=== PATIENT | female | born 1975 | race Hispanic/Latino ===

== ENCOUNTER 2016-10-06 05:28 | Emergency (ER) | payer SELFPAY ==
[2016-10-06] MEDS ORDERED: DUONEB *Not for PRN Use IH ONE ×2 (05:36→05:46)
[2016-10-06] MEDS ORDERED: PROVENTIL IH ONE ×2 (05:48)
[2016-10-06] MEDS ORDERED: MAGNESIUM SULFATE 2GM/50ML 2 GM/50 ML BAG IV ONE ×2 (06:00)
[2016-10-06] MEDS ORDERED: ZOFRAN ONE (06:06)
[2016-10-06] MEDS ORDERED: ZOFRAN IV ONE ×2 (06:13→06:44)
--- NOTE | 2016-10-06 06:21 | Emergency Department Report ---
ED Shortness of Breath HPI - General Chief Complaint: Adult Asthma Stated Complaint: PRUDENCIO Time Seen by Provider: 10/06/16 05:59 Source: patient Mode of arrival: Ambulatory Limitations: No Limitations - History of Present Illness Initial Comments: 30 year old female with a past medical history of asthma and 15 previous intubations presents to the hospital complaints of shortness of breath and asthma attack. Symptoms started abruptly at 11 PM. Use her inhaler 4 times prior to arrival without improvement. Patient arrived by POV and therefore no additional meds received in route. Positive nonproductive cough noted. No complaints of fever. Positive chest tightness reported. - Related Data Home Medications Medication Instructions Recorded Confirmed Last Taken Albuterol Sulfate [Proair 90 mcg IH Q6H PRN 10/06/16 10/06/16 10/06/16 Respiclick] Previous Rx's Medication Instructions Recorded Last Taken Type ALBUTEROL Inhaler [ProAir HFA 2 puff IH QID PRN #1 inhalation 10/06/16 Unknown Rx Inhaler] Prednisone [predniSONE 10 mg 10 mg PO .TAPER #1 tab.ds.pk 10/06/16 Unknown Rx (6-Day Pack, 21 Tabs)] Promethazine [Phenergan TAB] 25 mg PO Q6HR PRN #20 tab 10/06/16 Unknown Rx Allergies Allergy/AdvReac Type Severity Reaction Status Date / Time No Known Allergies Allergy Unverified 07/29/15 10:25 ED Review of Systems ROS: Stated complaint: PRUDENCIO Other details as noted in HPI Comment: All other systems reviewed and negative Other: Constitutional: No fevers chills Eyes: No eye pain visual changes ENT: No ear pain or throat pain Neck: Denies pain Respiratory: As per HPI Cardiovascular: Denies, palpitations, syncope GI: Denies abdominal pain. Nausea vomiting started after arrival : Denies dysuria Musculoskeletal: Denies back pain Skin: Denies rash, lesions, erythema Neurologic: Denies headache, numbness, weakness Psychiatric: Denies suicidal ideation, hallucinations ED Past Medical Hx - Past Medical History Previous Medical History?: Yes Hx Asthma: Yes - Surgical History Past Surgical History?: Yes Hx Cholecystectomy: Yes (1994) Additional Surgical History: tubal ligation - Social History Smoking Status: Never Smoker Substance Use Type: None - Medications Home Medications: Home Medications Medication Instructions Recorded Confirmed Last Taken Type ALBUTEROL Inhaler [ProAir HFA 2 puff IH QID PRN #1 inhalation 10/06/16 Unknown Rx Inhaler] Albuterol Sulfate [Proair 90 mcg IH Q6H PRN 10/06/16 10/06/16 10/06/16 History Respiclick] Prednisone [predniSONE 10 mg 10 mg PO .TAPER #1 tab.ds.pk 10/06/16 Unknown Rx (6-Day Pack, 21 Tabs)] Promethazine [Phenergan TAB] 25 mg PO Q6HR PRN #20 tab 10/06/16 Unknown Rx ED Physical Exam - General Limitations: No Limitations - Other Other exam information: General: No limitations, patient is alert in no acute distress Head exam: Atraumatic, normocephalic Eyes exam: Normal appearance, pupils equal reactive to light, extraocular movements intact ENT: Moist mucous membrane, normal oropharynx Neck exam: Normal inspection, full range of motion, no meningismus nontender Respiratory exam: Tachypnea, fair air movement, mild expiratory wheeze. ( Patient had a dual neb and currently receiving albuterol 5 mg) Cardiovascular: Tachycardia regular rhythm Abdomen: Soft, nondistended, and nontender, with normal bowel sounds, no rebound, or guarding Extremity: Full range of motion normal inspection no deformity Back: Normal Inspection, full range of motion, no tenderness Neurologic: Alert, oriented x3, cranial nerves intact, no motor or sensory deficit Psychiatric: normal affect, normal mood Skin: Warm, dry, intact ED Course Vital Signs 10/06/16 10/06/16 10/06/16 05:33 05:40 05:50 Temperature 97.6 F Pulse Rate 88 120 H Pulse Rate [ Bilateral] Respiratory 30 H 26 H Rate Respiratory Rate [Bilateral ] Blood Pressure 152/104 Blood Pressure [Right] O2 Sat by Pulse 100 100 99 Oximetry 10/06/16 10/06/16 10/06/16 05:52 06:00 06:10 Temperature Pulse Rate 131 H Pulse Rate [ 99 H Bilateral] Respiratory 17 26 H Rate Respiratory 20 Rate [Bilateral ] Blood Pressure Blood Pressure [Right] O2 Sat by Pulse 99 Oximetry 10/06/16 10/06/16 10/06/16 06:30 06:54 07:00 Temperature Pulse Rate 108 H 107 H 98 H Pulse Rate [ Bilateral] Respiratory 24 22 13 Rate Respiratory Rate [Bilateral ] Blood Pressure 118/74 Blood Pressure 141/94 [Right] O2 Sat by Pulse 98 98 96 Oximetry 10/06/16 10/06/16 10/06/16 07:30 07:47 08:00 Temperature 98.0 F Pulse Rate 104 H 85 Pulse Rate [ Bilateral] Respiratory 16 14 Rate Respiratory Rate [Bilateral ] Blood Pressure 131/89 115/68 Blood Pressure [Right] O2 Sat by Pulse 97 100 Oximetry 10/06/16 08:30 Temperature Pulse Rate 87 Pulse Rate [ Bilateral] Respiratory 12 Rate Respiratory Rate [Bilateral ] Blood Pressure 115/68 Blood Pressure [Right] O2 Sat by Pulse 98 Oximetry - Reevaluation(s) Reevaluation #1: 10/06/16 09:43 Patient's nausea vomiting do not improve with Zofran 8 mg but did improve with Benadryl and Reglan. After nebs, slightly measure, and magnesium patient's clear, no hypoxia. No tachypnea or tachycardia. And patient continues to deny abdominal pain and is nontender on exam 10/06/16 09:50 Patient observed for over an hour after her last treatment and continues to feel relieved without any recurrent wheezing or shortness of breath. ED Medical Decision Making - Lab Data Result diagrams: 10/06/16 07:31 10/06/16 07:31 Lab Results 10/06/16 10/06/16 10/06/16 Range/Units 07:31 07:31 07:31 WBC 8.3 (4.5-11.0) K/mm3 RBC 4.79 (3.65-5.03) M/mm3 Hgb 15.8 H (10.1-14.3) gm/dl Hct 45.6 H (30.3-42.9) % MCV 95 (79-97) fl MCH 33 H (28-32) pg MCHC 35 H (30-34) % RDW 13.1 L (13.2-15.2) % Plt Count 259 (140-440) K/mm3 Lymph % (Auto) 14.5 (13.4-35.0) % [facility] % (Auto) 4.2 (0.0-7.3) % Eos % (Auto) 0.9 (0.0-4.3) % Baso % (Auto) 0.5 (0.0-1.8) % Lymph # 1.2 (1.2-5.4) K/mm3 [facility] # 0.4 (0.0-0.8) K/mm3 Eos # 0.1 (0.0-0.4) K/mm3 Baso # 0.0 (0.0-0.1) K/mm3 Seg Neutrophils % 79.9 H (40.0-70.0) % Seg Neutrophils # 6.7 (1.8-7.7) K/mm3 POC ABG pH (7.35-7.45) POC ABG pCO2 (35-45) POC ABG pO2 (80-105) POC ABG HCO3 POC ABG Total CO2 POC ABG O2 Sat POC ABG Base Excess FiO2 % Sodium 135 L (137-145) mmol/L Potassium 3.4 L (3.6-5.0) mmol/L Chloride 100.0 (98-107) mmol/L Carbon Dioxide 15 L (22-30) mmol/L Anion Gap 23 mmol/L BUN 7 (7-17) mg/dL Creatinine 0.5 L (0.7-1.2) mg/dL Estimated GFR > 60 ml/min BUN/Creatinine Ratio 14.00 % Glucose 180 H (65-100) mg/dL Calcium 8.4 (8.4-10.2) mg/dL Total Bilirubin 0.90 (0.1-1.2) mg/dL AST 277 H (5-40) units/L ALT 131 H (7-56) units/L Alkaline Phosphatase 149 H (35-129) units/L Total Protein 6.8 (6.3-8.2) g/dL Albumin 3.7 L (3.9-5) g/dL Albumin/Globulin Ratio 1.2 % Lipase 173 H (13-60) units/L HCG, Qual Negative (Negative) 10/06/16 Range/Units 08:42 WBC (4.5-11.0) K/mm3 RBC (3.65-5.03) M/mm3 Hgb (10.1-14.3) gm/dl Hct (30.3-42.9) % MCV (79-97) fl MCH (28-32) pg MCHC (30-34) % RDW (13.2-15.2) % Plt Count (140-440) K/mm3 Lymph % (Auto) (13.4-35.0) % [facility] % (Auto) (0.0-7.3) % Eos % (Auto) (0.0-4.3) % Baso % (Auto) (0.0-1.8) % Lymph # (1.2-5.4) K/mm3 [facility] # (0.0-0.8) K/mm3 Eos # (0.0-0.4) K/mm3 Baso # (0.0-0.1) K/mm3 Seg Neutrophils % (40.0-70.0) % Seg Neutrophils # (1.8-7.7) K/mm3 POC ABG pH 7.402 (7.35-7.45) POC ABG pCO2 30.9 L (35-45) POC ABG pO2 106 H (80-105) POC ABG HCO3 19.2 POC ABG Total CO2 20 POC ABG O2 Sat 98 POC ABG Base Excess -6 FiO2 21 % Sodium (137-145) mmol/L Potassium (3.6-5.0) mmol/L Chloride (98-107) mmol/L Carbon Dioxide (22-30) mmol/L Anion Gap mmol/L BUN (7-17) mg/dL Creatinine (0.7-1.2) mg/dL Estimated GFR ml/min BUN/Creatinine Ratio % Glucose (65-100) mg/dL Calcium (8.4-10.2) mg/dL Total Bilirubin (0.1-1.2) mg/dL AST (5-40) units/L ALT (7-56) units/L Alkaline Phosphatase (35-129) units/L Total Protein (6.3-8.2) g/dL Albumin (3.9-5) g/dL Albumin/Globulin Ratio % Lipase (13-60) units/L HCG, Qual (Negative) - Radiology Data Radiology results: report reviewed Abdominal ultrasound: Cholecystectomy. Dilated common bile duct and possible fatty liver. - Medical Decision Making Patient's asthma exacerbation has improved. Chest x-ray not performed since patient denies infectious symptoms. Patient will be discharged on medications for acute asthma exacerbation. Elevated LFTs noted. She denies daily alcohol use. Previous cholecystectomy. Outpatient PMD and/or GI follow-up evaluation will be encouraged - Differential Diagnosis asthma exacerbation, bronchitis Critical Care Time: No Critical care attestation.: If time is entered above; I have spent that time in minutes in the direct care of this critically ill patient, excluding procedure time. ED Disposition Clinical Impression: Acute asthma exacerbation, Elevated LFTs, Vomiting Disposition: - TO HOME OR SELFCARE Is pt being admited?: No Does the pt Need Aspirin: No Condition: Stable Instructions: Asthma (ED) Additional Instructions: Take the medication as prescribed. Use the good Rx card provided to make your medications more affordable. The Prescription is a typically cheapest at [facility]. Please return if symptoms worsen. Follow-up with a primary care doctor/clinic or GI specialist for further evaluation of your elevated liver Prescriptions: ALBUTEROL Inhaler [ProAir HFA Inhaler] 2 puff IH QID PRN #1 inhalation PRN Reason: Shortness Of Breath Prednisone [predniSONE 10 mg (6-Day Pack, 21 Tabs)] 10 mg PO .TAPER #1 tab.ds.pk Promethazine [Phenergan TAB] 25 mg PO Q6HR PRN #20 tab PRN Reason: Nausea Referrals: [facility] [Provider Group] - 2-3 Days UZIEL HAN MD [Staff Physician] - 2-3 Days (GI doctor) DIMITRIOS URIOSTEGUI MD [Staff Physician] - 2-3 Days (Primary care ) Time of Disposition: 09:51
[2016-10-06] MEDS ORDERED: BENADRYL IV ONE (07:24)
[2016-10-06] MEDS ORDERED: REGLAN IV ONE (07:24)
[2016-10-06 07:52] LABS: Basophils % (Auto) 0.5 % (0.0-1.8); Eosinophils % (Auto) 0.9 % (0.0-4.3); Hematocrit 45.6 % (30.3-42.9); Hemoglobin 15.8 gm/dl (10.1-14.3); Mean Corpuscular HGB Conc 35 % (30-34); Mean Corpuscular Hemoglobin 33 pg (28-32); Mean Corpuscular Volume 95 fl (79-97); Platelet Count 259 K/mm3 (140-440); Red Blood Count 4.79 M/mm3 (3.65-5.03); Red Cell Distribution Width 13.1 % (13.2-15.2); White Blood Count 8.3 K/mm3 (4.5-11.0)
[2016-10-06 08:04] LABS: Alanine Aminotransferase 131 units/L (7-56); Albumin 3.7 g/dL (3.9-5); Albumin/Globulin Ratio 1.2 %; Alkaline Phosphatase 149 units/L (35-129); Anion Gap 23 mmol/L; Blood Urea Nitrogen 7 mg/dL (7-17); Calcium 8.4 mg/dL (8.4-10.2); Carbon Dioxide 15 mmol/L (22-30); Glucose 180 mg/dL (65-100); Lipase 173 units/L (13-60); Potassium 3.4 mmol/L (3.6-5.0); Sodium 135 mmol/L (137-145); Total Protein 6.8 g/dL (6.3-8.2)
[2016-10-06 08:34] VITALS: BP 115/68
[2016-10-06 08:48] LABS: ISTAT Base Excess -6; ISTAT DEVICE 0; ISTAT HCO3 19.2; ISTAT PCO2 30.9 (35-45); ISTAT PH 7.402 (7.35-7.45); ISTAT PO2 106 (80-105); ISTAT SO2 98; ISTAT TCO2 20
[2016-10-06] MEDS ORDERED: K-DUR PO ONE (09:15)
--- NOTE | 2016-10-06 09:34 | Ultrasound Report ---
ULTRASOUND ABDOMEN INDICATION: Elevated LFTs, vomiting. COMPARISON: None similar. FINDINGS: Abdominal sonography suggests mild diffuse hepatic echogenic coarsening. No definite focal suspicious lesions or biliary dilatation. Gallbladder surgically absent. CBD caliber 1.1 cm at the angela hepatis. Homogenous spleen, 9.3 cm in length. No ascites. Imaged pancreas, IVC and abdominal aorta within normal limits. No hydronephrosis. Right kidney is 9.6 x 3.4 x 4.7 cm with cortical thickness of 1 cm. Left kidney is 9.7 x 3.7 x 3.8 cm with cortical thickness of 1.5 cm. CONCLUSION: Cholecystectomy, dilated CBD and possible fatty liver, as described. Please correlate. Thank you for the opportunity to participate in this patient's care.
[2016-10-06] MEDS ORDERED: PHENERGAN PR ONE ×2 (10:07)
== END 2016-10-06 10:15 | disposition home or self-care (01) ==
LOC: ED 05:28
DX: J45.901 Unspecified asthma with (acute) exacerbation (principal); R11.10 Vomiting, unspecified; R94.5 Abnormal results of liver function studies
CPT/HCPCS: 36415; 76700; 80053; 82803; 83690; 84703; 85025; 96365; 96375; 96376; 99284; J1200; J2405; J2765; J2930; J3475